=== PATIENT | male | born 1965 | race Caucasian/White ===

== ENCOUNTER → 2019-09-20 12:08 | Outpatient (CLI) | payer SELFPAY ==
[2019-09-23 08:45] LABS: Almond <0.10 kU/L (Class 0)
[2019-09-24 16:06] LABS: Alternaria tenuis <0.10 kU/L (Class 0); Ash, White 0.21 kU/L (Class 0/I); Aspergillus fumigatus <0.10 kU/L (Class 0); Bermuda Grass <0.10 kU/L (Class 0); Birch <0.10 kU/L (Class 0); Black Walnut 0.31 kU/L (Class 0/I); Cat Hair / Dander,Stand 0.62 kU/L (Class II); Cedar, Mountain 0.14 kU/L (Class 0/I); Cladosporium herbarum <0.10 kU/L (Class 0); Cockroach, American 0.47 kU/L (Class I); Cottonwood 0.17 kU/L (Class 0/I); D farinae Mite 0.65 kU/L (Class II); D pteronyssinus 0.59 kU/L (Class II); Dog Epithelia <0.10 kU/L (Class 0); Elm, American White 0.13 kU/L (Class 0/I); Immunoglobulin E 120 IU/mL (6-495); Maple/Box Elder <0.10 kU/L (Class 0); Mulberry, White <0.10 kU/L (Class 0); Oak, White <0.10 kU/L (Class 0); Pecan 0.32 kU/L (Class I); Penicillium Notatum <0.10 kU/L (Class 0); Pigweed, Rough <0.10 kU/L (Class 0); Ragweed, Short/Common 0.21 kU/L (Class 0/I); Russian Thistle <0.10 kU/L (Class 0); Sheep Sorrel <0.10 kU/L (Class 0); Sycamore, American <0.10 kU/L (Class 0); Timothy Grass 0.36 kU/L (Class I)
[2019-09-25 00:38] LABS: Mouse Urine <0.10 kU/L (Class 0)
== END ==
LOC: LAB 12:14 → PAVLAB 12:16
PROVIDERS: PCP Nurse Practitioner Family; Referring Provider Otolaryngology; Visit Provider Otolaryngology
DX: T78.40XA Allergy, unspecified, initial encounter (principal)
CPT/HCPCS: 36415; 82785; 86003